=== PATIENT | female | born 1935 | race Caucasian/White ===

== ENCOUNTER → 2017-05-04 | Outpatient (CLI) | payer OTHER, BC ==
--- NOTE | 2017-05-08 08:17 | DIAGNOSTIC IMAGING REPORT ---
FUSION CT SINUSES W/O CLINICAL HISTORY: 81 years-old Female presenting with CHRONIC SINUSITIS, polypoid changes on nasal endoscopy, parietal and right diarrhea, loss of smell and taste. TECHNIQUE: Multidetector CT of the sinuses was performed without the use of intravenous contrast. IV contrast: None. A dose lowering technique was used consistent with the principles of ALARA (as low as reasonably achievable). COMPARISON: None. CT DOSE (mGy.cm): The estimated cumulative dose is 639.15 mGy.cm. 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 Near-complete opacification of the maxillary sinuses. Sclerosis of the chisholm of both maxillary sinuses consistent with chronic sinusitis. There is either postsurgical change or osseous dissolution of the medial chisholm of the maxillary sinuses. Mucosal obstruction of the ostiomeatal units, which are poorly defined. Mucosal thickening partially obstructs the nasal frontoethmoidal recesses. Trace mucosal thickening in the right frontal sinus and anterior ethmoid air cells. Complete opacification of the left sphenoid sinus with internal high density suggesting chronic sinusitis. Minimal leftward deviation of the mid aspect of the bony nasal septum. No anatomic variant. No osseous dehiscence of the optic canals or carotid siphons. Focal soft tissue density within the left anterior maxilla with osseous remodeling suggesting chronic intraosseous inflammatory change or infection. No osseous erosion at the skull base. Trace fluid in the right mastoid air cells. No mass within the fossae of Rosenmuller. The orbits are uninvolved. Bilateral elim ira lenses are absent. Limited intracranial evaluation within normal limits. Upper cervical spine with degenerative change. Superficial soft tissues of the face within normal limits. IMPRESSION: 1. Evidence of chronic sinusitis involving the maxillary sinuses and left sphenoid sinus. Superimposed acute sinusitis is difficult to exclude. 2. Either osseous erosion or postsurgical changes of the medial chisholm of the maxillary sinuses suggested. Correlate with surgical history. This could raise concern for invasive fungal disease. 3. Focal intraosseous soft tissue density in the anterior left maxilla. Chronic infection or inflammation are favored. Electronically signed by: Anthony Orozco M.D. 05/04/2017 1:12 PM Dictated Date/Time: 05/04/2017 1:04 PM
== END | disposition home or self-care (01) ==
LOC: C.CTS 12:15 → EDSEX 13:00
PROVIDERS: ATTEND Physician Assistant
DX: J32.9 Chronic sinusitis, unspecified (principal)

== ENCOUNTER → 2017-05-11 | Outpatient (CLI) | payer OTHER, BC | END | disposition home or self-care (01) | LOC: C.LAB 15:56 | DX: J32.9 Chronic sinusitis, unspecified (principal) ==